=== PATIENT | female | born 1980 | race Two or more races ===

== ENCOUNTER 2023-06-29 16:08 | Emergency (ER) | payer MEDICAID ==
[~2023-06-29] VITALS: Ht 167.6 cm; Wt 145.8 kg
[2023-06-29] MEDS: SULFAMETHOX W/TRIMETH(800/160MG) DS TAB PO ONE (18:07)
[2023-06-29] MEDS: TETANUS-DIPTH-ACEL PERTUSSIS 0.5ML SYR Tdap IM ONE (18:08)
[2023-06-29] MEDS: KETOROLAC TROMETH 60MG/2ML VIAL IM ONE (18:08)
[2023-06-29 18:48] LABS: Chloride 101 mmol/L (98-107); Potassium 4.6 mmol/L (3.5-5.1); Sodium 136 mmol/L (136-145)
[2023-06-29 18:49] LABS: Anion Gap 7 (5-15); Carbon Dioxide 28 mmol/L (20-30)
[2023-06-29 18:50] LABS: Calcium 10.1 mg/dL (8.5-10.1)
[2023-06-29 18:51] LABS: Basophils # (auto) 0 10 ^3/uL (0-0.2); Basophils % (auto) 0.4 % (0.0-2.0); Eosinophils # (auto) 0.2 10 ^3/uL (0-0.8); Eosinophils % (auto) 1.2 % (0.0-7.0); Hematocrit 42.7 % (36.0-46.0); Hemoglobin 14.2 g/dL (12.2-16.2); Lymphocytes # (auto) 2.7 10 ^3/uL (0.4-5.4); Lymphocytes % (auto) 21.4 % (10.0-50.0); Mean Corpuscular Hemoglobin 28.4 pg (28.0-32.0); Mean Corpuscular Hgb Conc. 33.3 g/dL (32.0-36.0); Mean Corpuscular Volume 85.3 fL (80.0-100.0); Monocytes # (auto) 0.8 10 ^3/uL (0-1.3); Monocytes % (auto) 6.6 % (0.0-12.0); Neutrophils # (auto) 8.7 10 ^3/uL (1.6-8.6); Neutrophils % (auto) 70.4 % (37.0-80.0); Red Blood Cells 5.01 10^6/uL (4.0-5.20); Red Cell Distribution Width 13.1 % (11.8-14.3); White Blood Cell 12.4 10^3/uL (4.4-10.8)
[2023-06-29 18:54] LABS: Glucose 295 mg/dL (74-106)
[2023-06-29 18:55] LABS: BUN/Creatinine Ratio 12.3 (10.0-20.0); Blood Urea Nitrogen 9 mg/dL (9-23)
[2023-06-29 19:20] LABS: Urine Bacteria None Seen /hpf (None Seen)
[2023-06-29 19:39] LABS: Urine Blood Negative /uL (Negative); Urine Clarity Clear (Clear); Urine Color Yellow (Yellow); Urine Mucus FEW (None Seen); Urine Protein, UAD 1+ (Negative); Urine Urobilinogen Normal (Negative); Urine WBC 7 /hpf (0 - 5); Urine pH 5.5 (5.0-9.0)
[2023-06-29 19:40] LABS: Urine Specific Gravity > 1.050 (1.001-1.035)
[2023-06-29] MEDS ORDERED: IBUP-1455 PO (21:01)
[2023-06-29] MEDS ORDERED: CEPH500C PO (21:01)
[2023-06-29] MEDS ORDERED: BACDST PO (21:01)
[2023-06-29] MEDS: cefTRIAXone SOD 1,000 MG VL IM ONE (21:16)
[2023-06-29 21:17] VITALS: BP 146/82; PULSE 90; RESP 17; TEMP 98.7; O2SAT 97
== END 2023-06-29 21:18 | disposition home or self-care (01) ==
LOC: ER 16:08
DX: L03.311 Cellulitis of abdominal wall (principal); E11.9 Type 2 diabetes mellitus without complications
CPT/HCPCS: 36415; 80048; 81001; 85025; 90471; 90715; 96372; 99284; J1885